=== PATIENT | male | born 1975 | race Caucasian/White ===

== ENCOUNTER → 2017-12-18 | Outpatient (CLI) | payer BC | LOC: GMAJ 11:00 | PROVIDERS: ATTEND Family Medicine | DX: Z00.00 Encounter for general adult medical examination without abnormal findings (principal) ==

== ENCOUNTER → 2019-11-30 | Outpatient (CLI) | payer BC | LOC: GMAJ 10:44 | PROVIDERS: ATTEND Family Medicine | DX: Z12.5 Encounter for screening for malignant neoplasm of prostate (principal); I10 Essential (primary) hypertension ==

== ENCOUNTER 2020-09-19 15:08 | Inpatient (IN) | payer BC ==
--- NOTE | 2020-09-19 15:58 | RAD ---
EXAM DESCRIPTION: Chest,1 View CLINICAL HISTORY: 45 years Male, shortness of breath COMPARISON: None. TECHNIQUE: AP portable chest. FINDINGS: Heart size is large with increased pulmonary vascularity. Extensive bilateral pulmonary infiltrates in the perihilar and lower lobe regions. This could be pneumonia or pulmonary edema from congestive failure. The former is favored. Correlate with clinical findings. No pulmonary mass or worrisome nodule. No pneumothorax or pleural effusion. Bones are unremarkable. IMPRESSION: Large heart with increased vascularity. Extensive bilateral pulmonary infiltrates. Electronically signed by: Faustino Lovett MD 09/19/2020 3:56 PM ECONOMICS PROFESSOR
[2020-09-19] MEDS ORDERED: ACETAMINOPHEN 500 MG TAB PO ONE (16:02)
[2020-09-19] MEDS ORDERED: SODIUM CHLORIDE 0.9% 1000ML 1,000 ML IVS ONE (16:02)
[2020-09-19] MEDS ORDERED: ALUM & MAG HYDROX-SIMETHICONE 30 ML, LIDOCAINE VISCOUS 2% 15 ML PO ONE ×2 (16:12)
--- NOTE | 2020-09-19 16:48 | ED.PDOC ---
History of Present Illness - General Chief Complaint: Respiratory Problem Stated Complaint: COVID symptoms Time Seen by Provider: 09/19/20 15:42 Source: patient, RN notes reviewed, Vital Signs reviewed Exam Limitations: no limitations - History of Present Illness Initial Comments: Patient is a 45-year-old white male who complains of intermittent fevers and chills with associated cough and shortness of breath for the last 5 days. Symptoms have been waxing and waning. Patient denies any chest pain. Timing/Duration: other - 5 days Severity: moderate Improving Factors: rest Worsening Factors: movement Associated Symptoms: cough, fever/chills, loss of appetite, malaise, shortness of breath, weakness Allergies/Adverse Reactions: Allergies Penicillins Allergy (Verified 09/19/20 15:45) Review of Systems - Review of Systems Constitutional: States: see HPI, chills, fever, malaise, weakness EENTM: States: no symptoms reported. Denies: eye pain, blurred vision, double vision Respiratory: States: no symptoms reported, cough, short of breath Cardiology: States: no symptoms reported. Denies: chest pain, palpitations, syncope Gastrointestinal/Abdominal: States: no symptoms reported. Denies: abdominal pain, diarrhea, nausea, vomiting Genitourinary: States: no symptoms reported. Denies: dysuria, frequency Musculoskeletal: States: no symptoms reported. Denies: back pain, joint pain, neck pain Skin: States: no symptoms reported. Denies: change in color, rash Neurological: States: see HPI, weakness. Denies: tingling, tremors Endocrine: States: no symptoms reported. Denies: increased hunger, increased thirst, increased urine Hematologic/Lymphatic: States: no symptoms reported. Denies: blood clots, easy bleeding All other Systems: No Change from Baseline Past Medical History (General) - Patient Medical History Hx Seizures: No Hx Stroke: No Hx Dementia: No Hx Asthma: No Hx of COPD: No Hx Cardiac Disorders: No Hx Congestive Heart Failure: No Hx Pacemaker: No Hx Hypertension: Yes Hx Thyroid Disease: No Hx Diabetes: No Hx Gastroesophageal Reflux: No Hx Renal Disease: No Hx Cancer: No Hx of HIV: No Hx Hepatitis C: No Hx MRSA: No Surgical History: no surgical history - Vaccination History Hx Tetanus, Diphtheria Vaccination: No Hx Influenza Vaccination: No Hx Pneumococcal Vaccination: No - Social History Hx Tobacco Use: No Hx Chewing Tobacco Use: No Hx Alcohol Use: Yes Hx Substance Use: No Hx Substance Use Treatment: No Hx Depression: No Feels Threatened In Home Enviroment: No Feels Threatened In a Relationship: No Hx Physical Abuse: No Hx Emotional Abuse: No Hx Suspected Abuse: No - Female History Patient is a Female of Child Bearing Age (10 -59 yrs old): No - Triage Comment ED Triage Comment: The patient was alert and oriented times 4 and complained of fever and cough. He had a noted cough and felt warm to the touch and had a fever noted at 103.3. His O2 on room air was 85. Family Medical History - Family History Mother Family History: Unknown Physical Exam - Physical Exam General Appearance: Alert, Anxious, Obvious distress, Well Developed, Well Groomed, Well Hydrated, Well Nourished Eye Exam: bilateral normal Ears, Nose, Throat: hearing grossly normal, normal ENT inspection, normal pharynx Neck: non-tender, full range of motion, supple Respiratory: chest non-tender, lungs clear, no accessory muscle use, respiratory distress - mild, decreased breath sounds, rhonchi - diffusely throughout Cardiovascular/Chest: normal peripheral pulses, no edema, no gallop, no JVD, no murmur, tachycardia Peripheral Pulses: radial,right: 2+, radial,left: 2+ Gastrointestinal/Abdominal: normal bowel sounds, non tender, soft Back Exam: normal inspection, no CVA tenderness, no vertebral tenderness Extremity: normal range of motion, non-tender, normal inspection Neurologic: carpenter/labor II-XII nml as tested, no motor/sensory deficits, alert, normal mood/affect, oriented x 3 Skin Exam: normal color, warm/dry Lymphatic: no adenopathy Progress - Progress Progress: Differential diagnosis: Covid, pneumonia, influenza, viral URI among others. 09/19/20 18:58 Patient is hypoxic on room air at 86%, his sats improved to the mid 90s on 3 L via nasal cannula. Patient's temperature has responded to Motrin. Patient is Covid positive. Blood cultures been ordered. He has been started on Levaquin as he is allergic to penicillins. Remdesivir has been ordered here in the emergency department as well as Decadron IV. Plan on admission patient to the hospital. I discussed this with the patient he voices understanding and agreement. I discussed this with Kodak Wesley NP, and he had agrees to admission. [facility] #[id number] - Results/Orders Results/Orders: 09/19/20 14:30 ED Intent to Admit Routine 09/19/20 15:42 Isolation:Airborne ONCE 09/19/20 15:45 Pulse Ox, Continuous Monitoring STAT 09/19/20 18:50 levoFLOXacin 750MG IV [Levaquin 750MG IV] 750 mg Premix Bag 1 bag IVPB ONCE BLOOD CULTURE Stat 09/19/20 18:51 Remdesivir 200 mg Sodium Chloride 0.9% 250Ml [NS 250ml] 250 ml IVPB ONCE 09/19/20 18:54 CTA Chest [CT] Stat 09/20/20 15:45 Pulse Ox, Continuous Monitoring STAT 09/21/20 15:45 Pulse Ox, Continuous Monitoring STAT Laboratory Results - last 24 hr 09/19/20 09/19/20 09/19/20 15:50 15:50 15:50 WBC 7.7 RBC 4.74 Hgb 14.7 Hct 43.1 MCV 90.9 MCH 31.0 MCHC 34.1 RDW 14.5 Plt Count 157 MPV 9.6 Absolute Neuts (auto) 6.00 Absolute Lymphs (auto) 1.10 Absolute Monos (auto) 0.60 Absolute Eos (auto) 0.00 Absolute Basos (auto) 0.00 Neutrophils % 77.4 Lymphocytes % 14.5 L Monocytes % 7.5 Eosinophils % 0.0 L Basophils % 0.6 PTT (SP) 29.9 D-Dimer, Quantitative < 131.0 L Sodium 133 L Potassium 4.2 Chloride 92 L Carbon Dioxide 27 Anion Gap 18.2 H BUN 17 Creatinine 1.17 BUN/Creatinine Ratio 14.5 Random Glucose 123 H Serum Osmolality 269.3 L Calcium 8.7 Magnesium 1.8 Total Bilirubin 0.7 AST 75 H ALT 45 Alkaline Phosphatase 67 LD Total 503 H Creatine Kinase 3768 H* Troponin I C-Reactive Protein 17.5 H* B-Natriuretic Peptide 17.5 Serum Total Protein 7.9 Albumin 3.8 Globulin 4.1 H Albumin/Globulin Ratio 0.9 L 09/19/20 15:50 WBC RBC Hgb Hct MCV MCH MCHC RDW Plt Count MPV Absolute Neuts (auto) Absolute Lymphs (auto) Absolute Monos (auto) Absolute Eos (auto) Absolute Basos (auto) Neutrophils % Lymphocytes % Monocytes % Eosinophils % Basophils % PTT (SP) D-Dimer, Quantitative Sodium Potassium Chloride Carbon Dioxide Anion Gap BUN Creatinine BUN/Creatinine Ratio Random Glucose Serum Osmolality Calcium Magnesium Total Bilirubin AST ALT Alkaline Phosphatase LD Total Creatine Kinase Troponin I 0.02 C-Reactive Protein B-Natriuretic Peptide Serum Total Protein Albumin Globulin Albumin/Globulin Ratio EXAM DESCRIPTION: Chest,1 View CLINICAL HISTORY: 45 years Male, shortness of breath COMPARISON: None. TECHNIQUE: AP portable chest. FINDINGS: Heart size is large with increased pulmonary vascularity. Extensive bilateral pulmonary infiltrates in the perihilar and lower lobe regions. This could be pneumonia or pulmonary edema from congestive failure. The former is favored. Correlate with clinical findings. No pulmonary mass or worrisome nodule. No pneumothorax or pleural effusion. Bones are unremarkable. IMPRESSION: Large heart with increased vascularity. Extensive bilateral pulmonary infiltrates. Electronically signed by: Faustino Lovett MD 09/19/2020 3:56 Rapid Covid test: Negative PCR Covid test: Positive CTA chest pending. Ordered at the request of the admitting nurse practitioner EXAM: CTA chest with contrast CLINICAL INDICATION: Shortness of breath COMPARISON: None. TECHNIQUE: CTA of the chest was performed using contiguous a xial 2.5mm postcontrast sections through the chest including IV contrast with 3- D reconstructions. This exam was performed according to our departmental dose- optimization program, which includes automated exposure control, adjustment of the mA and/or kV according to patient size and/or use of iterative reconstruction technique. FINDINGS: There is no evidence of pulmonary embolism. There are no findings to suggest aortic dissection. There are no enlarged mediastinal or hilar lymph nodes. The visualized portions of the upper abdominal structures reveal hepatosplenomegaly and fatty change in the liver. There are multifocal groundglass opacities throughout both lungs. There is no pneumothorax or pleural effusion. IMPRESSION: 1. No evidence of pulmonary embolism. 2. Multifocal groundglass opacities throughout both lungs consistent with pneumonia including the possibility of COVID-19. 3. Hepatosplenomegaly. Fatty liver. Electronically signed by: Bruce Griffith MD 09/19/2020 7:26 PM Departure - Departure Clinical Impression: COVID-19 Pneumonia Qualifiers: Pneumonia type: due to unspecified organism Laterality: bilateral Lung location: unspecified part of lung Qualified Code(s): J18.9 - Pneumonia, unspecified organism Time of Disposition: 19:00 Disposition: Admit Patient Condition: Fair Diet: resume usual diet Activity: increase activity as tolerated Decision To Admit - Decistion To Admit Decision to Admit Date: 09/19/20 Decision to Admit Time: 16:00
[2020-09-19] MEDS ORDERED: levoFLOXacin 750MG IV 750 MG in PREMIX BAG 1 BAG IVPB ONE (18:50)
[2020-09-19] MEDS ORDERED: REMDESIVIR 200 MG in SODIUM CHLORIDE 0.9% 250ML 250 ML IVPB ONE (18:51)
--- NOTE | 2020-09-19 19:28 | CT ---
EXAM: CTA chest with contrast CLINICAL INDICATION: Shortness of breath COMPARISON: None. TECHNIQUE: CTA of the chest was performed using contiguous axial 2.5mm postcontrast sections through the chest including IV contrast with 3-D reconstructions. This exam was performed according to our departmental dose-optimization program, which includes automated exposure control, adjustment of the mA and/or kV according to patient size and/or use of iterative reconstruction technique. FINDINGS: There is no evidence of pulmonary embolism. There are no findings to suggest aortic dissection. There are no enlarged mediastinal or hilar lymph nodes. The visualized portions of the upper abdominal structures reveal hepatosplenomegaly and fatty change in the liver. There are multifocal groundglass opacities throughout both lungs. There is no pneumothorax or pleural effusion. IMPRESSION: 1. No evidence of pulmonary embolism. 2. Multifocal groundglass opacities throughout both lungs consistent with pneumonia including the possibility of COVID-19. 3. Hepatosplenomegaly. Fatty liver. Electronically signed by: Bruce Griffith MD 09/19/2020 7:26 PM PANEL MACHINE OPERATOR
--- NOTE | 2020-09-19 19:52 | HP ---
SUPERVISING PHYSICIAN: Randy Negrete MD CHIEF COMPLAINT: COVID positive test with increasing hypoxia and shortness of breath. HISTORY OF PRESENT ILLNESS: Mr. Cobos is a 45-year-old male patient that presented to the clinic today complaining of intermittent fevers and chills with worsening shortness of breath and a cough over the last 5 days. He was seen in the clinic and found to be hypoxic and sent to the Emergency Room for evaluation. Initially in the ER on admission, he was running 103.3 temperature, saturating 85% on room air, heart rate 106, blood pressure 135/74, respirations 20. His laboratory studies showed he had a low lymphocyte count with normal white count at 7,700 without a shift. D-dimer was normal at less than 131. Chemistries showed C-reactive protein 17.5 with elevated CK of 3768. Troponin 0.02. He denied any chest pains. He did have a slightly elevated anion gap at 18.2 on admission. CTA of his chest showed no evidence of pulmonary embolus, but multifocal ground glass opacities throughout both lungs consistent with pneumonia. Also of note was hepatosplenomegaly with fatty liver. He also had a COVID swab that was positive, but negative for all other bacterial and viral targets including influenza A and B. Blood cultures were completed. Given his hypoxia on room air and COVID test being positive and indication on CT of pneumonia, COVID pneumonitis, the patient is going to be admitted for treatment of COVID pneumonia. He was started initially on Levaquin and admitted in stable condition. PAST MEDICAL HISTORY: 1. Hypertension. PAST SURGICAL HISTORY: No major surgeries listed. HOME MEDICATIONS: No prescription medications listed. ALLERGIES: PENICILLINS. FAMILY HISTORY: Father in his late 70s with a history of lung cancer and prostate cancer. He has one brother who has prostate cancer. SOCIAL HISTORY: The patient lives in [place], [place]. He works in the [employer] industry. He has a significant other girlfriend. He denies any tobacco usage or smoking tobacco. He drinks on a very rare social occasion. He does not use any illicit drugs. REVIEW OF SYSTEMS: CONSTITUTIONAL: Positive for general malaise, fevers, chills, weakness. HEENT: Denies headaches, sore throats, earaches, nasal congestion, vision changes. RESPIRATORY: Positive for cough and shortness of breath as noted in history of present illness. CARDIOVASCULAR: Denies chest pain, palpitations or syncopal episodes. GASTROINTESTINAL: Denies nausea, vomiting, diarrhea, constipation or abdominal pain. GENITOURINARY: Denies dysuria, hematuria, polyuria. MUSCULOSKELETAL: Denies back pain, neck pain, joint pain. SKIN: Denies lesions, rashes, moles or unexplained changes. NEUROLOGIC: Denies ataxia, seizures, vision changes, syncopal episodes. He does note he has some mild weakness. No other focal motor deficits. HEMATOLOGIC: Denies unexplained bleeding, bruising or transfusion reactions. PHYSICAL EXAMINATION: VITAL SIGNS: Temperature 103.3, pulse 106, blood pressure 135/74, respirations 20, saturation 85% on room air, increasing to 92% on 3 liters nasal cannula. After Tylenol on admission to the Medical/Surgical Floor, temperature was 97.5. GENERAL: The patient looks to be in no acute distress. He is resting comfortably. He is not in any respiratory distress. He is alert. HEENT: Tympanic membranes clear bilaterally. Oropharynx is pink, moist without any lesions. NECK: Supple, nontender with full range of motion. No jugular venous distention noted. RESPIRATORY: Lung sounds are diminished throughout with no obvious rhonchi, wheezes or rales noted. CARDIOVASCULAR: Regular rate and rhythm without any appreciable murmurs, gallops, or rubs. ABDOMEN: Obese, but soft, nontender. Positive bowel sounds. EXTREMITIES: There is no cyanosis, clubbing or edema. NEUROLOGIC: Cranial nerves II-XII are grossly intact. The patient is alert and oriented times three. LABORATORY: White count normal at 7,700, hemoglobin 14.7, hematocrit 43.1, platelet count 157,000. Differential was without a left shift, but his lymphocyte count was low. Coagulation studies showed normal PTT at 29.9 with D- dimer less than 131. Chemistries showed mildly low sodium of 133. Elevated anion gap at 18.2, potassium 4.2, glucose 123, calcium 8.7. Liver functions all within normal limits except for slightly elevated AST at 75. LDH elevated at 503. Creatinine kinase elevated at 3768 with a normal troponin at 0.02. Initial C-reactive protein was 7.5. MICROBIOLOGY: Blood cultures pending. His respiratory panel was positive for COVID, negative for all other bacterial and viral targets including influenza A and B. RADIOLOGY: CT of his chest failed to demonstrate any pulmonary embolus. There was note of multifocal ground glass opacities throughout both lungs and hepatosplenomegaly with fatty liver. ASSESSMENT: 1. COVID pneumonitis with developing pneumonia. 2. Sepsis secondary to #1. 3. Mild electrolyte imbalance with sodium of 133. 4. History of hypertension. 5. Hepatosplenomegaly and fatty liver as noted on CT scan needing further followup as an outpatient. PLAN: Mr. Cobos is going to be admitted for treatment of COVID pneumonitis/pneumonia. He is 5 to 6 days into his course. He is saturating okay, does not show any distress. We will start him in Remdesivir, azithromycin, Rocephin, Decadron, Align and Protonix. He was given a dose of Levaquin in the Emergency Room. He will also be on Lovenox. We will follow his labs as per protocol. He will be on oxygen to maintain his O2 saturations above 92%. I would anticipate his length of stay to be at least 2 to 3 days. He will also be on aggressive bronchial hygiene with albuterol inhalers. Until the patient can transition to outpatient management, we will continue to monitor and treat as needed. #[id number] [facility]
[2020-09-19] MEDS ORDERED: REMDESIVIR IV 100 MG VIAL ONE (20:08)
[2020-09-19] MEDS ORDERED: MAGNESIUM HYDROXIDE 30 ML UD PO PRN (20:09)
[2020-09-19] MEDS ORDERED: ACETAMINOPHEN 325 MG TAB PO PRN (20:09)
[2020-09-19] MEDS ORDERED: ONDANSETRON INJ 4 MG/2 ML VIAL IV PRN (20:09)
[2020-09-19] MEDS ORDERED: SODIUM CHLORIDE 0.9% (FLUSH) 10 ML SYG IV PRN (20:09)
[2020-09-19] MEDS ORDERED: AZITHROMYCIN IV 500 MG in SODIUM CHLORIDE 0.9% 250ML 250 ML IVPB SCH (20:30)
[2020-09-19] MEDS: IV SET AND CAP CHANGE INJ INJ SCH (21:15)
[2020-09-19] MEDS: ALBUTEROL INHALER 64 PUFF/8GM INH PRN (21:20)
[2020-09-19] MEDS: DEXAMETHASONE INJ 10 MG/ML VIAL IV SCH (21:27)
[2020-09-19] MEDS: ENOXAPARIN SODIUM 40 MG/0.4 ML SYG SUBCU SCH (21:28)
[2020-09-19] MEDS: PROMETHAZINE W/CODEINE SYR 5 ML UD PO PRN (21:28)
[2020-09-19] MEDS: TEMAZEPAM 15 MG CAP PO PRN (21:28)
[2020-09-19] MEDS: guaiFENesin ER TAB 600 MG TAB PO SCH (21:28)
[2020-09-19] MEDS ORDERED: AZITHROMYCIN IV 500 MG VIAL IVPB ONE (23:50)
[2020-09-19] MEDS ORDERED: SODIUM CHLORIDE 0.9% 250ML 250 ML ONE (23:50)
[2020-09-19] MEDS ORDERED: cefTRIAXone SODIUM 1 GM VIAL ONE (23:50)
[2020-09-19] MEDS ORDERED: SODIUM CHL 0.9% 50ML MIN-BAG+ 50 ML IVPB ONE (23:51)
[2020-09-20] MEDS: cefTRIAXone SODIUM 1 GM in SODIUM CHL 0.9% 50ML MIN-BAG+ 50 ML IVPB SCH ×2 (00:03→19:48)
[2020-09-20] MEDS: PROMETHAZINE W/CODEINE SYR 5 ML UD PO PRN ×2 (05:47→19:45)
[2020-09-20] MEDS: PANTOPRAZOLE SODIUM IV 40 MG VIAL IV SCH (05:47)
[2020-09-20] MEDS: ALBUTEROL INHALER 64 PUFF/8GM INH PRN (06:00)
[2020-09-20] MEDS ORDERED: SODIUM CHLORIDE 0.9% 250ML 250 ML ONE ×2 (07:52→19:28)
[2020-09-20] MEDS ORDERED: REMDESIVIR IV 100 MG VIAL ONE (07:52)
[2020-09-20] MEDS: BIFIDOBACTERIUM INFANTIS 4 MG CAP PO SCH (08:17)
[2020-09-20] MEDS: REMDESIVIR 100 MG in SODIUM CHLORIDE 0.9% 250ML 250 ML IVPB SCH (08:17)
[2020-09-20] MEDS: guaiFENesin ER TAB 600 MG TAB PO SCH ×2 (08:17→19:45)
[2020-09-20] MEDS: DEXAMETHASONE INJ 10 MG/ML VIAL IV SCH (08:17)
[2020-09-20] MEDS: ALBUTEROL INHALER 64 PUFF/8GM INH SCH ×4 (08:52→20:20)
[2020-09-20] MEDS: NEBIVOLOL 2.5 MG TAB PO SCH (08:59)
[2020-09-20] MEDS ORDERED: NEBIVOLOL HCL 20 MG PO SCH (09:00)
[2020-09-20] MEDS ORDERED: SODIUM CHLORIDE 0.9% 1000ML 1,000 ML IVS PRN (11:05)
--- NOTE | 2020-09-20 13:44 | PN ---
SUPERVISING PHYSICIAN: Randy Negrete MD DATE: 09/20/20 SUBJECTIVE: The patient is sitting on the side of the bed. At rest, he is in no respiratory distress, but he does complain of increased shortness of breath with any exertion. His O2 saturations have been quite low and we discussed his clinical picture. He denies any nausea or vomiting. He does feel much better than he did yesterday. OBJECTIVE: VITAL SIGNS: Temperature 98.6, heart rate 88, blood pressure 119/80, respiratory rate 20, O2 saturation 90% on 4 liters nasal cannula. It is reported that he dropped to the mid 80s with any exertion. RESPIRATORY: Scattered rhonchi throughout with diminished air sounds throughout. He does have increased work of breathing with tachypnea with exertion. CARDIAC: Regular rate and rhythm. NEUROLOGIC: Awake, alert and oriented times three. LABORATORY: WBCs 5.9, hemoglobin 13.1, hematocrit 38.9. He has a left shift on differential. PTT 35.4, fibrinogen 686, D-dimer 319. Electrolytes are basically within normal limits with the exception of chloride slightly low at 96. LD 430, AST 70. Creatinine kinase is improved to 3,428. C-reactive protein 20.9. MICROBIOLOGY: Preliminary blood cultures are negative to date. All other labs and films have been reviewed via the EMR. ASSESSMENT: 1. COVID pneumonitis with developing pneumonia. 2. Sepsis secondary to #1. 3. Elevated CPK with concerns for developing rhabdomyolysis. 4. Mild electrolyte imbalance, improved. 5. History of hypertension. 6. Hepatosplenomegaly and fatty liver as per CT scan with need for further followup as an outpatient. PLAN: We will continue present supportive care including pneumonia and COVID guidelines. Respiratory has done proning on the patient to assist with his oxygenation. I have also given him some judicious fluids hopefully to help decrease the creatinine kinase. Routine labs will be followed in the morning as well as a chest x-ray. He will continue with his COVID medications. We will follow and treat as needed. [facility][id number] [facility]
[2020-09-20] MEDS ORDERED: AZITHROMYCIN IV 500 MG VIAL IVPB ONE (19:28)
[2020-09-20] MEDS: ENOXAPARIN SODIUM 40 MG/0.4 ML SYG SUBCU SCH (19:45)
[2020-09-20] MEDS: AZITHROMYCIN IV 500 MG in SODIUM CHLORIDE 0.9% 250ML 250 ML IVPB SCH (20:30)
[2020-09-21] MEDS: PROMETHAZINE W/CODEINE SYR 5 ML UD PO PRN ×3 (05:15→19:30)
[2020-09-21] MEDS: PANTOPRAZOLE SODIUM IV 40 MG VIAL IV SCH (05:48)
--- NOTE | 2020-09-21 07:15 | RAD ---
EXAM: Chest,1 View HISTORY: COVID PNA COMPARISON: Chest 1 View AP 09/19/2020 CTA chest 09/19/2020 TECHNIQUE: Chest 1 View AP FINDINGS: Heart size upper limits normal. No pneumothorax or significant pleural effusion. Trachea midline. No significant change in marked dense diffuse bilateral lung opacities. IMPRESSION: No significant change in marked dense diffuse bilateral lung opacities. Electronically signed by: Jonathan Rhodes MD 09/21/2020 7:14 AM EVAPORATIVE COOLER INSTALLER
[2020-09-21] MEDS: ALBUTEROL INHALER 64 PUFF/8GM INH SCH ×2 (08:40→17:14)
[2020-09-21] MEDS: DEXAMETHASONE INJ 10 MG/ML VIAL IV SCH (09:44)
[2020-09-21] MEDS: guaiFENesin ER TAB 600 MG TAB PO SCH ×2 (09:44→20:29)
[2020-09-21] MEDS: BIFIDOBACTERIUM INFANTIS 4 MG CAP PO SCH (09:44)
[2020-09-21] MEDS: REMDESIVIR 100 MG in SODIUM CHLORIDE 0.9% 250ML 250 ML IVPB SCH (09:44)
[2020-09-21] MEDS: NEBIVOLOL 2.5 MG TAB PO SCH (09:45)
[2020-09-21] MEDS ORDERED: MORPHINE SULFATE INJ 10 MG/ML VIAL IV PRN (14:03)
[2020-09-21] MEDS: IPRATROPIUM/ALBUTEROL 3 ML VIAL NEB SCH ×2 (16:00→21:20)
[2020-09-21] MEDS: ENOXAPARIN SODIUM 40 MG/0.4 ML SYG SUBCU SCH (20:28)
[2020-09-21] MEDS: cefTRIAXone SODIUM 1 GM in SODIUM CHL 0.9% 50ML MIN-BAG+ 50 ML IVPB SCH (20:28)
[2020-09-21] MEDS: AZITHROMYCIN IV 500 MG in SODIUM CHLORIDE 0.9% 250ML 250 ML IVPB SCH (21:00)
[2020-09-21] MEDS ORDERED: ALBUTEROL SULFATE 2.5 MG/3 ML VIAL NEB ONE (23:46)
[2020-09-22] MEDS: IPRATROPIUM/ALBUTEROL 3 ML VIAL NEB PRN ×2 (00:02→04:40)
[2020-09-22] MEDS: PROMETHAZINE W/CODEINE SYR 5 ML UD PO PRN (04:30)
[2020-09-22] MEDS: PANTOPRAZOLE SODIUM IV 40 MG VIAL IV SCH (05:54)
--- NOTE | 2020-09-22 07:17 | RAD ---
EXAM: Single view chest. INDICATION: Covid pneumonia. COMPARISON: Chest x-ray: 09/21/2020. FINDINGS: Grossly stable diffuse bilateral airspace disease. Heart is enlarged. No pneumothorax or pleural effusion. Bones are unchanged. IMPRESSION: Grossly stable diffuse airspace disease. Electronically signed by: Jamison Rowell MD 09/22/2020 7:16 AM ELECTRIC MOTOR ASSEMBLER AND TESTER
--- NOTE | 2020-09-22 07:39 | PN ---
SUPERVISING PHYSICIAN: Randy Negrete MD DATE: 09/21/20 SUBJECTIVE: The patient is lying in bed. He is in moderate respiratory distress. He complains of shortness of breath but no other issues at this time. He as a difficult time getting up, even to the side of the bed, without increased work of breathing. OBJECTIVE: VITAL SIGNS: Temperature 98, heart rate 80, blood pressure 113/79, respiratory rate 22 to 24, O2 saturation 94% on 10 liters of high flow. He drops to the mid 80s with any exertion. RESPIRATORY: Diminished breath sounds throughout. He is very tachypneic with any movement. CARDIAC: Regular rate and rhythm. NEUROLOGIC: Awake, alert and oriented times three. LABORATORY: WBCs 6.4, hemoglobin 12,7, hematocrit 37.1. Fibrinogen 643, D- dimer 177. Electrolytes are basically within normal limits. AST 61. LD 389. Creatinine kinase 1893, C-reactive protein 14.1. MICROBIOLOGY: Preliminary blood cultures show no growth after 48 hours. RADIOLOGY: Chest x-ray shows no significant change in marked diffuse bilateral lung opacities. All other labs and films have been reviewed via the EMR. ASSESSMENT: 1. COVID pneumonitis with developing pneumonia and hypoxia. 2. Sepsis secondary to #1. 3. Elevated CPK with concerns for developing rhabdomyolysis. 4. Mild electrolyte imbalance that is resolved. 5. History of hypertension. 6. Hepatosplenomegaly and fatty liver as per CT scan. He will need for further followup as an outpatient. PLAN: We will continue present supportive care including continuing his present COVID medications and Covid lab. The patient is being proned several times daily. We have attempted to get the patient transferred to another facility but so far there are no beds in the region. If needed, we will put patient on BiPAP. His normal saline IV has been discontinued, now will recheck his CPK at 5 PM. I have changed his albuterol inhaler to nebulizer treatments with a Covid mask. Will need aggressive pulmonary hygiene. We will continue to monitor the patient and treat as needed. #[id number] [facility]
[2020-09-22] MEDS: IPRATROPIUM/ALBUTEROL 3 ML VIAL NEB SCH ×4 (08:40→21:55)
[2020-09-22] MEDS: DEXAMETHASONE INJ 10 MG/ML VIAL IV SCH (09:03)
[2020-09-22] MEDS: guaiFENesin ER TAB 600 MG TAB PO SCH ×2 (09:03→20:16)
[2020-09-22] MEDS: NEBIVOLOL 2.5 MG TAB PO SCH (09:03)
[2020-09-22] MEDS: BIFIDOBACTERIUM INFANTIS 4 MG CAP PO SCH (09:03)
[2020-09-22] MEDS: REMDESIVIR 100 MG in SODIUM CHLORIDE 0.9% 250ML 250 ML IVPB SCH (09:04)
--- NOTE | 2020-09-22 13:05 | PN ---
SUPERVISING PHYSICIAN: Randy Negrete MD DATE: 09/22/20 SUBJECTIVE: The patient states he feels fine, no shortness of breath, no dyspnea on exertion. He does complain of a little bit of cough here and there, but nothing consistent. OBJECTIVE: VITAL SIGNS: Blood pressure 128/78, heart rate 80, respiratory rate 20, temperature 98.2, oxygen saturation currently 94% on 8 liters via nasal cannula. GENERAL: Mr. Cobos is a 45-year-old male patient in no active distress. NEUROLOGIC: The patient is alert. LUNGS: Diminished with some scattered rales. CARDIOVASCULAR: Regular rate and rhythm. Normal S1, S2. ABDOMEN: Soft. Positive bowel sounds. GENITOURINARY: Deferred. EXTREMITIES: Lower extremities with no edema. LABORATORY: White count 8.3, hemoglobin 12.8, hematocrit 37.4, platelet count 234. Coagulation studies shows D-dimer 251, fibrinogen 578. Arterial blood gases noted yesterday with a decent pO2 of 97, but O2 saturation of 97% as well. Chemistry this morning with elevated glucose of 172. CRP is down to 6.0 from 14.1. RADIOLOGY: Chest x-ray shows diffuse patchy bilateral infiltrates consistent with comfort pneumonitis which is unchanged from the day before. ASSESSMENT: 1. COVID pneumonitis. 2. Elevated CPK with concerns for rhabdomyolysis, which is improving. 3. Electrolyte imbalance, resolved. 4. Hypertension. 5. Hepatosplenomegaly and fatty liver per CT scan that will need to be followed as an outpatient. PLAN: We will continue the current medications for COVID pneumonitis including dexamethasone, Remdesivir, azithromycin and Rocephin. I am going to add a hemoglobin A1c to his labs tomorrow given his hyperglycemia on his chemistry. He is on a little bit less oxygen today than he was yesterday. I did discuss with him if we had to crank up the oxygen and escalate his care, then we would consider transfer, which they actually tried to do yesterday, but there were no accepting facilities anywhere around right now. At this point, he seems to be looking a little bit better, so he will not need transfer at this time. #[id number] [facility]
[2020-09-22] MEDS: IV SET AND CAP CHANGE INJ INJ SCH (20:05)
[2020-09-22] MEDS: cefTRIAXone SODIUM 1 GM in SODIUM CHL 0.9% 50ML MIN-BAG+ 50 ML IVPB SCH (20:05)
[2020-09-22] MEDS: NYSTATIN SUSPENSION 500,000/5 ML UD MT SCH (20:16)
[2020-09-22] MEDS: ENOXAPARIN SODIUM 40 MG/0.4 ML SYG SUBCU SCH (20:16)
[2020-09-22] MEDS: AZITHROMYCIN IV 500 MG in SODIUM CHLORIDE 0.9% 250ML 250 ML IVPB SCH (21:07)
[2020-09-23] MEDS: IPRATROPIUM/ALBUTEROL 3 ML VIAL NEB PRN (04:12)
[2020-09-23] MEDS ORDERED: PANTOPRAZOLE SODIUM TAB 40 MG PO ONE (04:22)
[2020-09-23] MEDS: PANTOPRAZOLE SODIUM TAB 40 MG PO SCH (05:54)
[2020-09-23] MEDS: PROMETHAZINE W/CODEINE SYR 5 ML UD PO PRN (08:29)
[2020-09-23] MEDS: IPRATROPIUM/ALBUTEROL 3 ML VIAL NEB SCH ×4 (08:55→20:46)
[2020-09-23] MEDS: guaiFENesin ER TAB 600 MG TAB PO SCH ×2 (09:50→20:27)
[2020-09-23] MEDS: DEXAMETHASONE INJ 10 MG/ML VIAL IV SCH (09:50)
[2020-09-23] MEDS: BIFIDOBACTERIUM INFANTIS 4 MG CAP PO SCH (09:50)
[2020-09-23] MEDS: NEBIVOLOL 2.5 MG TAB PO SCH (09:50)
[2020-09-23] MEDS: NYSTATIN SUSPENSION 500,000/5 ML UD MT SCH ×4 (09:50→20:27)
[2020-09-23] MEDS ORDERED: GLUCAGON INJ 1 MG VIAL SUBCU PRN (11:53)
[2020-09-23] MEDS ORDERED: DEXTROSE 50% 25 GM/50 ML SYG IV PRN (11:53)
--- NOTE | 2020-09-23 13:19 | PN ---
SUPERVISING PHYSICIAN: Randy Negrete MD DATE: 09/23/20 SUBJECTIVE: The patient states once again he does not feel anymore short of breath than he did. He is a little anxious and wants to know what the plan is but mainly he is just anxious from having to stay in his room. OBJECTIVE: VITAL SIGNS: Blood pressure 138/86, heart rate 86, respiratory rate 18, temperature 97.9, oxygen saturation currently 96% on 8 liters via nasal cannula. GENERAL: Mr. Cobos is a 45-year-old male patient in no active distress. NEUROLOGIC: The patient is alert. LUNGS: Diminished but otherwise clear to auscultation bilaterally. . CARDIOVASCULAR: Regular rate and rhythm. Normal S1, S2. ABDOMEN: Soft. Positive bowel sounds. EXTREMITIES: Lower extremities with no edema. LABORATORY: White count 8.5, hemoglobin 13.6, platelet count 374. D-dimer up to 510 which is an elevation from 251. Chemistry is pretty much unremarkable except for hyperglycemia. I did check a hemoglobin A1C due to the persistent hyperglycemia and his hemoglobin A1C was 6.7. CRP is 3.1 which is an improvement from the 6.0 yesterday. ASSESSMENT: 1. COVID-19 pneumonitis. 2. Elevated CPK with concerns for rhabdomyolysis, which is improved. 3. Electrolyte imbalance, improved. 4. Hypertension. 5. Hepatosplenomegaly and fatty liver per CT scan that will need to be followed as an outpatient. 6. Diabetes mellitus type 2 as evidenced by hemoglobin A1C of 6.7. PLAN: We will continue the current dexamethasone, Remdesivir, azithromycin and Rocephin. Given his A1C, I am going to start him on metformin and sliding scale coverage. Additionally, with his D-dimer elevation, I am going to go ahead and start him on Eliquis instead of the Lovenox. I will repeat his labs and chest x-ray tomorrow. I am going to start him on Xanax for anxiety and see how that works for him. [facility][id number] [facility]
[2020-09-23] MEDS ORDERED: REMDESIVIR IV 100 MG VIAL ONE (14:13)
[2020-09-23] MEDS ORDERED: SODIUM CHLORIDE 0.9% 250ML 250 ML ONE (14:13)
[2020-09-23] MEDS ORDERED: NYSTATIN SUSPENSION 500,000/5 ML UD ONE (14:13)
[2020-09-23] MEDS: REMDESIVIR 100 MG in SODIUM CHLORIDE 0.9% 250ML 250 ML IVPB SCH (14:26)
[2020-09-23] MEDS: ALPRAZolam 0.25 MG TAB PO PRN (14:26)
[2020-09-23] MEDS: APIXABAN 5 MG TAB PO SCH ×2 (14:26→20:27)
[2020-09-23] MEDS: INSULIN LISPRO 100 UNITS/ML PEN SUBCU SCH ×2 (17:30→21:00)
[2020-09-23] MEDS: metFORMIN HCL 500 MG TAB PO SCH (17:42)
[2020-09-23] MEDS: cefTRIAXone SODIUM 1 GM in SODIUM CHL 0.9% 50ML MIN-BAG+ 50 ML IVPB SCH (20:05)
[2020-09-23] MEDS: AZITHROMYCIN IV 500 MG in SODIUM CHLORIDE 0.9% 250ML 250 ML IVPB SCH (20:31)
[2020-09-23] MEDS: TEMAZEPAM 15 MG CAP PO PRN (20:39)
[2020-09-24] MEDS: ALPRAZolam 0.25 MG TAB PO PRN (06:01)
[2020-09-24] MEDS: PANTOPRAZOLE SODIUM TAB 40 MG PO SCH (06:01)
--- NOTE | 2020-09-24 07:22 | RAD ---
EXAM: XR Chest, 1 View CLINICAL HISTORY: The patient is 45 years old and is Male; covid-19 TECHNIQUE: Frontal view of the chest. COMPARISON: Chest x-ray 09/22/2020. FINDINGS: Lungs: Diffuse bilateral airspace disease, increased in the left lung compared to the prior exam. Pleural space: Unremarkable. No pneumothorax. Heart: Unremarkable. No cardiomegaly. Mediastinum: Unremarkable. Bones/joints: Unremarkable. IMPRESSION: Diffuse bilateral airspace disease, increased in the left lung compared to the prior exam. Electronically signed by: Manolo Cevallos MD 09/24/2020 7:20 AM [facility]
[2020-09-24] MEDS: IPRATROPIUM/ALBUTEROL 3 ML VIAL NEB SCH ×4 (08:57→21:18)
[2020-09-24] MEDS: INSULIN LISPRO 100 UNITS/ML PEN SUBCU SCH ×4 (08:58→20:37)
[2020-09-24] MEDS: metFORMIN HCL 500 MG TAB PO SCH ×2 (08:59→17:54)
[2020-09-24] MEDS: BIFIDOBACTERIUM INFANTIS 4 MG CAP PO SCH (09:00)
[2020-09-24] MEDS: APIXABAN 5 MG TAB PO SCH ×2 (09:01→20:23)
[2020-09-24] MEDS: NYSTATIN SUSPENSION 500,000/5 ML UD MT SCH ×4 (09:01→20:23)
[2020-09-24] MEDS: guaiFENesin ER TAB 600 MG TAB PO SCH ×2 (09:01→20:23)
[2020-09-24] MEDS: DEXAMETHASONE INJ 10 MG/ML VIAL IV SCH (09:02)
[2020-09-24] MEDS: ALPRAZolam 0.5 MG TAB PO PRN ×2 (11:03→18:24)
--- NOTE | 2020-09-24 12:28 | PN ---
SUPERVISING PHYSICIAN: Randy Negrete MD DATE: 09/24/20 SUBJECTIVE: The patient is pretty frustrated. He continues not to feel but his oxygen saturations just aren't improving as fast as he wants them to. OBJECTIVE: VITAL SIGNS: Blood pressure 139/87, heart rate 70, respiratory rate 18, temperature 98.5, oxygen saturation 95% on 8 liters via nasal cannula. GENERAL: Mr. Cobos is a 45-year-old male patient in no active distress. NEUROLOGIC: The patient is alert. LUNGS: Diminished. CARDIOVASCULAR: Regular rate and rhythm. Normal S1, S2. ABDOMEN: Soft. Positive bowel sounds, obese. EXTREMITIES: Lower extremities with no edema. 2+ pulses, capillary refill less than 2 seconds. LABORATORY: White count 10.8, hemoglobin 14.4, platelet count 313. D-dimer 1,500 which is a slight improvement from yesterday of 1,510. Chemistry shows improvement in CRP to 1.9 from 3.1. Mild elevation in LFTs at 43 and 61 respectively. Chest x-ray done today shows bilateral patchy opacities but there is a mild increase in the left compared to the prior exam. ASSESSMENT: 1. COVID-19 pneumonitis. 2. Hypertension. 3. Diabetes mellitus type 2 as evidenced by hemoglobin A1c of 6.7. 4. Hepatosplenomegaly and fatty liver per CT scan that will need to be followed as an outpatient. PLAN: Due to his slow improvement in oxygenation, I am going to continue his Remdesivir. Will need to continue to monitor his LFTs. There is a mild increase in his AST/ALT but will monitor those on subsequent labs. Continue the dexamethasone. The azithromycin has been completed. Will continue Rocephin. Will continue his sliding scale of metformin regarding his diabetes. Continue the Eliquis. I am going to increase his Xanax due to anxiety but I did explain to him in depth that he is just not safe to go home right now. #[id number] [facility]
[2020-09-24] MEDS ORDERED: SODIUM CHLORIDE 0.9% 250ML 250 ML ONE (14:04)
[2020-09-24] MEDS ORDERED: REMDESIVIR IV 100 MG VIAL ONE (14:04)
[2020-09-24] MEDS: REMDESIVIR 100 MG in SODIUM CHLORIDE 0.9% 250ML 250 ML IVPB SCH (14:11)
[2020-09-24] MEDS: NEBIVOLOL 2.5 MG TAB PO SCH (14:15)
[2020-09-24] MEDS: cefTRIAXone SODIUM 1 GM in SODIUM CHL 0.9% 50ML MIN-BAG+ 50 ML IVPB SCH (19:53)
[2020-09-24] MEDS: TEMAZEPAM 15 MG CAP PO PRN (20:25)
[2020-09-25] MEDS: PANTOPRAZOLE SODIUM TAB 40 MG PO SCH (05:51)
[2020-09-25] MEDS: IPRATROPIUM/ALBUTEROL 3 ML VIAL NEB PRN (06:42)
[2020-09-25] MEDS ORDERED: ALPRAZolam 0.5 MG TAB ONE ×4 (07:48→21:26)
[2020-09-25] MEDS: metFORMIN HCL 500 MG TAB PO SCH ×2 (08:03→17:11)
[2020-09-25] MEDS: ALPRAZolam 0.5 MG TAB PO PRN ×3 (08:03→21:28)
[2020-09-25] MEDS: INSULIN LISPRO 100 UNITS/ML PEN SUBCU SCH ×4 (08:03→20:24)
[2020-09-25] MEDS: IPRATROPIUM/ALBUTEROL 3 ML VIAL NEB SCH ×4 (09:13→20:15)
[2020-09-25] MEDS ORDERED: SODIUM CHLORIDE 0.9% 250ML 250 ML ONE (09:42)
[2020-09-25] MEDS ORDERED: REMDESIVIR IV 100 MG VIAL ONE (09:42)
[2020-09-25] MEDS: BIFIDOBACTERIUM INFANTIS 4 MG CAP PO SCH (09:49)
[2020-09-25] MEDS: PROMETHAZINE W/CODEINE SYR 5 ML UD PO PRN ×2 (09:49→17:12)
[2020-09-25] MEDS: APIXABAN 5 MG TAB PO SCH ×2 (09:49→20:14)
[2020-09-25] MEDS: NYSTATIN SUSPENSION 500,000/5 ML UD MT SCH ×4 (09:49→20:15)
[2020-09-25] MEDS: NEBIVOLOL 2.5 MG TAB PO SCH (09:49)
[2020-09-25] MEDS: REMDESIVIR 100 MG in SODIUM CHLORIDE 0.9% 250ML 250 ML IVPB SCH (09:50)
[2020-09-25] MEDS: guaiFENesin ER TAB 600 MG TAB PO SCH ×2 (09:50→20:14)
[2020-09-25] MEDS: DEXAMETHASONE INJ 10 MG/ML VIAL IV SCH (09:50)
--- NOTE | 2020-09-25 16:41 | PN ---
SUPERVISING PHYSICIAN: Randy Negrete MD DATE: 09/25/20 SUBJECTIVE: The patient is up walking around in the room. He is still requiring quite a bit of oxygen, although he does not feel short of breath. He denies chest pain, nausea or vomiting. OBJECTIVE: VITAL SIGNS: Temperature 97.7, heart rate 94. Blood pressure 122/75, respiratory rate 20, oxygen saturation 92% on high flow nasal cannula. LUNGS: Diminished breath sounds throughout. CARDIOVASCULAR: Regular rate and rhythm. NEUROLOGIC: He awake, alert, and oriented x3. LABORATORY: WBC 8,800, hemoglobin 13.6, hematocrit 40. D-dimer 837. Electrolytes are basically within normal limits. ALT 71, C-reactive protein 1.8. All other labs and films have been reviewed via the EMR. ASSESSMENT: 1. COVID-19 pneumonitis. 2. Hypertension. 3. Diabetes mellitus type 2 as evidenced by hemoglobin A1c of 6.7. 4. Hepatosplenomegaly and fatty liver per CT scan that will need to be followed as an outpatient. PLAN: We will continue present supportive care and continue to wean off his oxygen as tolerated. Will check lab and chest x-ray tomorrow. Continue with aggressive pulmonary hygiene. [facility][id number] [facility]
[2020-09-25] MEDS: cefTRIAXone SODIUM 1 GM in SODIUM CHL 0.9% 50ML MIN-BAG+ 50 ML IVPB SCH (20:09)
[2020-09-25] MEDS: IV SET AND CAP CHANGE INJ INJ SCH (20:15)
[2020-09-25] MEDS: TEMAZEPAM 15 MG CAP PO PRN (21:27)
[2020-09-26] MEDS: PROMETHAZINE W/CODEINE SYR 5 ML UD PO PRN (04:40)
[2020-09-26] MEDS: IPRATROPIUM/ALBUTEROL 3 ML VIAL NEB PRN (05:15)
[2020-09-26] MEDS: PANTOPRAZOLE SODIUM TAB 40 MG PO SCH (05:50)
[2020-09-26] MEDS ORDERED: ALPRAZolam 0.5 MG TAB ONE (05:55)
[2020-09-26] MEDS: ALPRAZolam 0.5 MG TAB PO PRN ×3 (05:55→21:28)
[2020-09-26] MEDS ORDERED: REMDESIVIR IV 100 MG VIAL ONE (07:27)
[2020-09-26] MEDS ORDERED: SODIUM CHLORIDE 0.9% 250ML 250 ML ONE (07:27)
[2020-09-26] MEDS: DEXAMETHASONE INJ 10 MG/ML VIAL IV SCH (07:56)
[2020-09-26] MEDS: NYSTATIN SUSPENSION 500,000/5 ML UD MT SCH ×4 (07:57→21:28)
[2020-09-26] MEDS: NEBIVOLOL 2.5 MG TAB PO SCH (07:58)
[2020-09-26] MEDS: APIXABAN 5 MG TAB PO SCH ×2 (07:58→21:28)
[2020-09-26] MEDS: guaiFENesin ER TAB 600 MG TAB PO SCH ×2 (07:58→21:28)
[2020-09-26] MEDS: metFORMIN HCL 500 MG TAB PO SCH ×2 (07:58→17:06)
[2020-09-26] MEDS: BIFIDOBACTERIUM INFANTIS 4 MG CAP PO SCH (07:58)
--- NOTE | 2020-09-26 08:00 | RAD ---
EXAM: XR Chest, 1 View CLINICAL HISTORY: The patient is 45 years old and is Male; covid TECHNIQUE: Frontal view of the chest. COMPARISON: 09/24/2020. FINDINGS: Lungs: Diffuse airspace disease bilaterally, increased compared to the prior exam. Pleural space: Unremarkable. No pneumothorax. Heart: Unremarkable. No cardiomegaly. Mediastinum: Unremarkable. Bones/joints: Unremarkable. IMPRESSION: Diffuse airspace disease bilaterally, increased compared to the prior exam. Electronically signed by: Manolo Cevallos MD 09/26/2020 7:59 AM [facility]
[2020-09-26] MEDS: REMDESIVIR 100 MG in SODIUM CHLORIDE 0.9% 250ML 250 ML IVPB SCH (08:04)
[2020-09-26] MEDS: IPRATROPIUM/ALBUTEROL 3 ML VIAL NEB SCH ×4 (08:20→21:05)
[2020-09-26] MEDS: INSULIN LISPRO 100 UNITS/ML PEN SUBCU SCH ×4 (10:18→21:45)
--- NOTE | 2020-09-26 18:31 | PN ---
SUPERVISING PHYSICIAN: Erik Hull MD DATE: 09/26/20 SUBJECTIVE: The patient is sitting up in his chair. He is quite frustrated with not having any symptoms of COVID, but he is continuing to have to wear his oxygen. He has no complaints of shortness of breath or weakness. We discussed his ABGs and how hypoxia affects him at the cellular level. We went through his plan of care as well as his prognosis. After a lengthy discussion, he voiced understanding. OBJECTIVE: VITAL SIGNS: Temperature 97.4, heart rate 82, blood pressure 129/84, respiratory rate 18, oxygen saturation 89-90% on 3 liters nasal cannula. LUNGS: Diminished breath sounds throughout. CARDIOVASCULAR: Regular rate and rhythm. NEUROLOGIC: He awake, alert, and oriented x3. LABORATORY: WBC 9, hemoglobin 14.6, hematocrit 42.8. Fibrinogen 418, D-dimer 822. Blood gas shows pO2 49, O2 saturation 84%. Electrolytes are basically within normal limits. ALT 71, LD 228, C-reactive protein 1.9. RADIOLOGY: Chest x-ray shows diffuse airspace disease bilaterally, increased compared to prior exam. All other labs and films have been reviewed via the EMR. ASSESSMENT: 1. COVID-19 pneumonitis. 2. Hypertension. 3. Diabetes mellitus, type 2, as evidenced by hemoglobin A1c of 6.7. 4. Hepatosplenomegaly and fatty liver per CT scan that will need to be followed up as an outpatient. PLAN: We will continue present supportive care. I did take his oxygen off for approximately one hour and his ABGs were results of that and we discussed the results at length. He understands he will have to be weaned very slowly off of oxygen and that it may be several days before his O2 saturations stabilize enough for him to be discharged and most likely will need to have oxygen at discharge. I have ordered labs for tomorrow. We will continue to try to wean his oxygen as tolerated. [facility][id number] [facility]
[2020-09-26] MEDS: cefTRIAXone SODIUM 1 GM in SODIUM CHL 0.9% 50ML MIN-BAG+ 50 ML IVPB SCH (21:27)
[2020-09-26] MEDS: TEMAZEPAM 15 MG CAP PO PRN (21:29)
[2020-09-27] MEDS: PANTOPRAZOLE SODIUM TAB 40 MG PO SCH (06:05)
[2020-09-27] MEDS: metFORMIN HCL 500 MG TAB PO SCH ×2 (07:46→17:17)
[2020-09-27] MEDS: INSULIN LISPRO 100 UNITS/ML PEN SUBCU SCH ×4 (08:34→20:37)
[2020-09-27] MEDS: ALBUTEROL INHALER 64 PUFF/8GM INH SCH ×3 (11:50→20:10)
[2020-09-27] MEDS: IPRATROPIUM/ALBUTEROL 3 ML VIAL NEB SCH (13:08)
[2020-09-27] MEDS: NYSTATIN SUSPENSION 500,000/5 ML UD MT SCH ×4 (13:53→20:26)
[2020-09-27] MEDS: guaiFENesin ER TAB 600 MG TAB PO SCH ×2 (13:53→20:26)
[2020-09-27] MEDS: BIFIDOBACTERIUM INFANTIS 4 MG CAP PO SCH (13:53)
[2020-09-27] MEDS: REMDESIVIR 100 MG in SODIUM CHLORIDE 0.9% 250ML 250 ML IVPB SCH (13:53)
[2020-09-27] MEDS: NEBIVOLOL 2.5 MG TAB PO SCH (13:53)
[2020-09-27] MEDS: DEXAMETHASONE INJ 10 MG/ML VIAL IV SCH (13:53)
[2020-09-27] MEDS: APIXABAN 5 MG TAB PO SCH ×2 (13:53→20:26)
--- NOTE | 2020-09-27 16:34 | PN ---
SUPERVISING PHYSICIAN: Erik Hull MD DATE: 09/27/20 SUBJECTIVE: The patient is sitting up in bed. He continues to feel better every day but his oxygen saturations do drop with any exertion. We discussed his discharge plans and that he most likely have to go home on oxygen. He is in much better spirits today than yesterday. OBJECTIVE: VITAL SIGNS: Temperature 97.5, heart rate 67, blood pressure 111/72, respiratory rate 18 to 20, oxygen saturation 88-92% on 3 liters nasal cannula. LUNGS: Diminished breath sounds throughout. CARDIOVASCULAR: Regular rate and rhythm. NEUROLOGIC: He awake, alert, and oriented x3. LABORATORY: WBC 9.6, hemoglobin 13.8, hematocrit 40.4. D-dimer 441. Electrolytes are basically within normal limits. ALT 68, LD 200. All other labs and films have been reviewed via the EMR. ASSESSMENT: 1. COVID-19 pneumonitis. 2. Hypertension. 3. Diabetes mellitus, type 2, with hemoglobin A1c of 6.7. 4. Hepatosplenomegaly and fatty liver per CT scan that will need followup as an outpatient. PLAN: We will continue present supportive care including the Covid guidelines. He has completed his Decadron and Ceftriaxone but I have given him 4 additional days of oral Decadron at 4 mg daily. We will continue to try to wean him off oxygen. We will continue to monitor and treat as needed. [facility][id number] [facility]
[2020-09-27] MEDS: ALPRAZolam 0.5 MG TAB PO PRN ×2 (17:17→21:14)
[2020-09-27] MEDS: cefTRIAXone SODIUM 1 GM in SODIUM CHL 0.9% 50ML MIN-BAG+ 50 ML IVPB SCH (20:25)
[2020-09-27] MEDS: TEMAZEPAM 15 MG CAP PO PRN (21:14)
[2020-09-28] MEDS: PANTOPRAZOLE SODIUM TAB 40 MG PO SCH (06:12)
--- NOTE | 2020-09-28 06:31 | RAD ---
EXAM DESCRIPTION: Chest,1 View CLINICAL HISTORY: covid COMPARISON: 09/26/2020 FINDINGS: Single frontal radiograph view of the chest. Cardiomediastinal silhouette: Stable. Lungs: Slight improved aeration with persistent diffuse bilateral airspace opacities. Low lung volumes. No pneumothorax. Bones: Stable. Upper abdomen: Stable. IMPRESSION: 1. Slight improved aeration with persistent diffuse bilateral airspace opacities. Electronically signed by: Reese Gutierrez 09/28/2020 6:30 AM [facility] [facility]
[2020-09-28] MEDS ORDERED: DEXAMETHASONE 4 MG TAB ONE (07:24)
[2020-09-28] MEDS: INSULIN LISPRO 100 UNITS/ML PEN SUBCU SCH ×2 (08:11→11:56)
[2020-09-28] MEDS: metFORMIN HCL 500 MG TAB PO SCH (08:12)
[2020-09-28] MEDS: NYSTATIN SUSPENSION 500,000/5 ML UD MT SCH (08:31)
[2020-09-28] MEDS: guaiFENesin ER TAB 600 MG TAB PO SCH (08:31)
[2020-09-28] MEDS: APIXABAN 5 MG TAB PO SCH (08:31)
[2020-09-28] MEDS: BIFIDOBACTERIUM INFANTIS 4 MG CAP PO SCH (08:31)
[2020-09-28] MEDS: NEBIVOLOL 2.5 MG TAB PO SCH (08:31)
[2020-09-28] MEDS ORDERED: DEXAMETHASONE 4 MG TAB PO SCH (09:00)
[2020-09-28 09:30] VITALS: BP 116/77; TEMP 98.6
[2020-09-28] MEDS: ALBUTEROL INHALER 64 PUFF/8GM INH SCH ×2 (09:43→12:50)
[2020-09-28] MEDS ORDERED: SODIUM CHLORIDE 0.9% 250ML 250 ML ONE (11:10)
[2020-09-28] MEDS ORDERED: REMDESIVIR IV 100 MG VIAL ONE (11:10)
[2020-09-28 15:03] VITALS: O2SAT 93
--- NOTE | 2020-09-29 09:36 | DS ---
SUPERVISING PHYSICIAN: Reese Hull MD ADMISSION DIAGNOSES: 1. COVID pneumonitis with developing pneumonia. 2. Sepsis secondary to #1. 3. Mild electrolyte imbalance with sodium of 133. 4. History of hypertension. 5. Hepatosplenomegaly and fatty liver as noted on CT scan needing further followup as an outpatient. DISCHARGE DIAGNOSES: 1. COVID-19 pneumonitis. 2. Hypertension. 3. Diabetes mellitus, type 2, with hemoglobin A1c of 6.7. 4. Hepatosplenomegaly and fatty liver per CT scan that will need followup as an outpatient. REASON FOR HOSPITALIZATION: Mr. Cobos is a 45-year-old male patient that presented to the clinic today complaining of intermittent fevers and chills with worsening shortness of breath and a cough over the last 5 days. He was seen in the clinic and found to be hypoxic and sent to the Emergency Room for evaluation. Initially in the ER on admission he was running 103.3 temperature, saturating 85% on room air, heart rate 106, blood pressure 135/74, respirations 20. His laboratory studies showed he had a low lymphocyte count with normal white count at 7,700 without a shift. D-dimer was normal at less than 131. Chemistries showed C-reactive protein 17.5 with elevated CK of 3768. Troponin 0.02. He denied any chest pains. He did have a slightly elevated anion gap at 18.2 on admission. CTA of his chest showed no evidence of pulmonary embolus, but multifocal ground glass opacities throughout both lungs consistent with pneumonia. Also of note was hepatosplenomegaly with fatty liver. He also had a COVID swab that was positive, but negative for all other bacterial and viral targets including influenza A and B. Blood cultures were completed. Given his hypoxia on room air and COVID test being positive and indication on CT of pneumonia, COVID pneumonitis, the patient is going to be admitted for treatment of COVID pneumonia. He was started initially on Levaquin and admitted in stable condition. LABORATORY: Discharge coagulation studies D-dimer at 515, initial D-dimer was 1510. White count on discharge 11,000 without a left shift, still had a low lymphocytic count. Chemistries on discharge showed no known allergies electrolytes with creatinine of 0.94, liver functions showing just slightly elevated AST at 91, otherwise, AST was normal. Final C-reactive protein was 1 compared to admission of 20.9. MICROBIOLOGY: Blood cultures showed negative after 5 days. His nasal swab on admission did show positive for Covid. RADIOLOGY: Final chest x-ray on discharge showed slight improved aeration with persistent diffuse airspace opacities compared to 09/26. He did have a CTA of the chest initially on admission and per radiology interpretation showed no evidence of a pulmonary embolus. There was noted multifocal ground glass opacities throughout both lungs. There was note of hepatosplenomegaly with a fatty liver. HOSPITAL COURSE: Mr. Cobos was admitted on the for treatment of Covid pneumonitis. He was treated with Remdesivir, azithromycin, Rocephin, Decadron, Align and Protonix and treated for a full course of all medications. He was showing good improvement, he was still requiring some oxygen was oxygen saturation at discharge 95% on 3 liter nasal cannula. He was arranged to have oxygen on discharge. His blood pressure was showing 116/77. He was afebrile at 98.6. In looking at his past admission, on admission he was inhalation therapy satting 85% on room air. He was very slow to titrate down off HiFlow nasal cannula and was ambulating prior to discharge. He was showing rest on room air at 86% saturations, during ambulation 93% on 2 liters. He did drop down initially to 86% but maintained 93% and showed no distress, recovered in less than 2 minutes and was on 2 liter nasal cannula. He was able to ambulate for 10 minutes without any signs of distress. He improved clinically well enough to discharge home to continue with outpatient management. PLAN: Mr. Cobos was discharged on 09/28 with instructions to followup with Dr. Love. He is to call his office on Saturday and get a followup appointment scheduled. He is to be cleared of isolation from Dr. Love instructions. He was use oxygen as directed using nasal cannula. He was to resume his usual diabetic diet, increase activity as tolerated. He completed a course of antibiotics of azithromycin, Rocephin as well as Decadron prior to discharge. Therefore, he was discharged just on tapering dose of steroids over 6 days with Medrol Dosepak and was continued on anticoagulation with Eliquis 5 mg twice a day #28, no refills. To be followed up by Dr. Love. CONDITION ON DISCHARGE: Stable and improved. DISPOSITION: Patient is discharged home. #[id number] [facility]
== END 2020-09-28 14:20 | disposition home or self-care (01) | DRG 871 ==
LOC: ER 15:08 → MS 19:51 → OBSVTOIN 19:51
PROVIDERS: ADMIT Nurse Practitioner Family; ATTEND Nurse Practitioner Family
PROC: XW033E5 Introduction of Remdesivir Anti-infective into Peripheral Vein, Percutaneous Approach, New Technology Group 5 (ICD-10-PCS; principal; 2020-09-19)
PROC: B32T1ZZ Computerized Tomography (CT Scan) of Left Pulmonary Artery using Low Osmolar Contrast (ICD-10-PCS; 2020-09-19)
PROC: B32S1ZZ Computerized Tomography (CT Scan) of Right Pulmonary Artery using Low Osmolar Contrast (ICD-10-PCS; 2020-09-19)
DX: A41.89 Other specified sepsis (principal); U07.1 COVID-19; J12.89 Other viral pneumonia; M62.82 Rhabdomyolysis; R09.02 Hypoxemia; I10 Essential (primary) hypertension; K76.0 Fatty (change of) liver, not elsewhere classified; R16.2 Hepatomegaly with splenomegaly, not elsewhere classified; E11.9 Type 2 diabetes mellitus without complications; Z88.0 Allergy status to penicillin

== ENCOUNTER → 2020-10-18 | Outpatient (CLI) | payer BC ==
--- NOTE | 2020-10-18 15:02 | CT ---
EXAM DESCRIPTION: Chest w/Contrast CLINICAL HISTORY: 45 years Male, pneumonia due to SARS associated coronavirus TECHNIQUE: This exam was performed according to our departmental dose-optimization program, which includes automated exposure control, adjustment of the mA and/or kV according to patient size and/or use of iterative reconstruction technique. COMPARISON: 09/19/2020 FINDINGS: The thyroid gland is unremarkable. No axillary adenopathy. Normal caliber thoracic aorta. No pericardial effusion. Hepatic steatosis. No evidence of acute process in the visualized upper abdomen. No mediastinal adenopathy. The main pulmonary artery is grossly unremarkable. No pneumothorax. No pleural effusion. Improving multifocal bilateral peripheral groundglass airspace opacities. No acute or suspicious osseous abnormality. Scattered degenerative changes present. IMPRESSION: Improving multifocal bilateral peripheral groundglass airspace disease. Electronically signed by: Farhat Ahumada MD 10/18/2020 3:00 PM [facility]
== END ==
LOC: CT 09:39
PROVIDERS: ATTEND Family Medicine
DX: Z01.812 Encounter for preprocedural laboratory examination (principal); J12.81 Pneumonia due to SARS-associated coronavirus